=== PATIENT | female | born 1995 | race Caucasian/White ===

== ENCOUNTER 2016-12-08 00:20 | Inpatient (IN) ==
[2016-12-08] MEDS ORDERED: NS 1,000 ML IV ONE ×2 (00:39→02:36)
[2016-12-08 00:49] LABS: MANUAL DIFF NEEDED? NO
[2016-12-08 01:07] LABS: BASO% 0.2 % (0.0-0.8); EOS# 0.23 X1000 (0.0-0.7); EOS% 1.2 % (0.0-10.0); HEMOGLOBIN 12.3 g/dL (12.0-16.0); IMM GRAN# 0.17 X1000 (0.0-0.04); IMM GRAN% 0.9 % (0.0-0.5); LYMPH# 2.57 X1000 (1.2-3.4); MCH 31.2 PG (27-31); MCHC 33.2 g/dL (33-37); MCV 93.9 FL (81-99); MONO# 0.84 X1000 (0.11-0.59); MONO% 4.3 % (1.7-9.3); MPV 9.9 FL (7.4-10.4); NEUT% 80.4 % (42.2-75.2); PLT 280 X1000 (130-400); RBC 3.94 XMIL (4.2-5.4)
[2016-12-08 01:10] LABS: UR AMPHETAMINES QUAL PRESUMPTIVE POSITIVE (NONE DETECT); UR BARBITUATES QUAL NONE DETECTED (NONE DETECT); UR BENZODIAZEPIN QUAL PRESUMPTIVE POSITIVE (NONE DETECT); UR CANNABINOIDS QUAL PRESUMPTIVE POSITIVE (NONE DETECT); UR COCAINE QUAL NONE DETECTED (NONE DETECT); UR MDMA QUAL NONE DETECTED (NONE DETECT); UR METHADONE QUAL NONE DETECTED (NONE DETECT); UR METHAMPHETAMINE QUAL PRESUMPTIVE POSITIVE (NONE DETECT); UR OPIATES QUAL PRESUMPTIVE POSITIVE (NONE DETECT); UR OXYCODONE QUAL NONE DETECTED (NONE DETECT); UR PCP QUAL NONE DETECTED (NONE DETECT); UR TCA QUAL NONE DETECTED (NONE DETECT)
[2016-12-08 01:11] LABS: INR 1.04 (0.86-1.15); PROTIME 13.9 Seconds (12.1-15.5)
[2016-12-08 01:12] LABS: PTT PL 34.2 Seconds (22.6-43.9)
[2016-12-08 01:31] LABS: BILIRUBIN URINE NEGATIVE (NEGATIVE); BLOOD URINE TRACE (NEGATIVE); CLARITY CLEAR (CLEAR); COLOR YELLOW; LEUKOCYTES URINE TRACE (NEGATIVE); NITRITE URINE NEGATIVE (NEGATIVE); PH URINE 6.5; PROTEIN URINE 2+(100 mg/dL) mg/dL (NEGATIVE); SP GRAVITY URINE 1.025; UROBILINOGEN URINE 1+(1 mg/dL)
[2016-12-08 01:36] LABS: URINE CRYSTAL CA OXALATE PRESENT /HPF; URINE CULTURE PL NEEDED? YES; URINE EPITHELIAL CELLS <10 /HPF (<10); URINE RBC <10 /HPF (<10); URINE SOURCE CATH; URINE WBC <10 /HPF (<10)
[2016-12-08 02:08] LABS: AGAP 11; ALBUMIN 3.6 g/dL (3.5-5.0); ALKALINE PHOSPHATASE 99 U/L (32-104); BUN 9 mg/dL (8-22); CHLORIDE 101 mmol/L (98-107); CK PROFILE 167 U/L (24-173); COSMO 280; GOT 19 U/L (10-30); GPT 18 U/L (10-36); MAGNESIUM 1.9 mg/dL (1.5-2.7); POTASSIUM 4.7 mmol/L (3.5-5.1); SODIUM 137 mmol/L (136-145); TCO2 25 mmol/L (25-35); TOTAL PROTEIN 6.9 g/dL (6.3-8.3)
[2016-12-08 02:16] LABS: FREE T4 1.38 ng/dL (0.93-1.70)
[2016-12-08] MEDS ORDERED: VANCOMYCIN 1 GM/NS 1 GM/250 ML IVPB IV ONE (03:40)
--- NOTE | 2016-12-08 05:59 | EKG Report ---
Test Performed on : 12/08/2016 00:22:50 AM Test Reason : CHEST PAIN Blood Pressure : / mmHG Vent. Rate : 114 BPM Atrial Rate : 114 BPM P-R Int : 164 ms QRS Dur : 090 ms QT Int : 342 ms P-R-T Axes : 057 075 017 degrees QTc Int : 471 ms Sinus tachycardia. Otherwise normal ECG No previous ECGs available Unconfirmed Result
--- NOTE | 2016-12-08 07:39 | Diag Imaging Result Document ---
PROCEDURE NAME: HEAD W/O CONTRAST - 12/08/2016 CT BRAIN WITHOUT CONTRAST. DOSE REDUCTION PROTOCOL. FINDINGS: No parenchymal hemorrhage. No epidural or subdural hematoma. No subarachnoid hemorrhage. No mass identified on this noncontrasted exam. No midline shift. No hydrocephalus. No sinus opacification. IMPRESSION: No hemorrhage. Negative brain CT without contrast. A preliminary report was given at 1:44 a.m..
--- NOTE | 2016-12-08 09:31 | Diag Imaging Result Document ---
PROCEDURE NAME: CHEST-PORTABLE - 12/08/2016 PORTABLE CHEST: COMPARISON: No comparison exam. FINDINGS: Heart size is normal. There is mild prominence of central vascular markings. The remainder of the lungs appear essentially clear. There is no consolidation, pleural effusion, or pneumothorax identified. There is no obvious rib fracture seen. IMPRESSION: Mild prominence of central vascular markings. No other evidence of acute disease.
[2016-12-08] MEDS ORDERED: ZOFRAN IV PRN (17:51)
[2016-12-08] MEDS ORDERED: NS 1,000 ML IV SCH (17:51)
[2016-12-08] MEDS ORDERED: ZOSYN 3.375 GM/NS 3.375 GM/50 ML IVPB IV SCH (18:00)
[2016-12-08] MEDS ORDERED: VANCOMYCIN IV PER PHARMACY MISC SCH (18:00)
--- NOTE | 2016-12-08 18:14 | HISTORY AND PHYSICAL ---
CHIEF COMPLAINT: Unresponsive. HISTORY OF PRESENT ILLNESS: This is a 21-year-old female who presented to the emergency room via EMS after taking an apparent overdose. On EMS arrival, a friend was doing CPR. She was given 2 mg of nasal Narcan with no response followed by 2 mg via EJ. The patient did respond and she pulled out the EJ, and was then placed on O2 non-rebreather at 2 L. Shortly after arriving at the emergency room, she was placed on 2 L nasal cannula where she remains and saturations have stayed 96-99%. The patient does have a prior history of narcotic use and abuse with a prior suicide attempt with a prior overdose of heroin. In the emergency room, she was given IV hydration as well as vancomycin and admitted to ICU for further evaluation and treatment. PAST MEDICAL HISTORY: Heroin overdose, prior suicide attempt. Polysubstance use and abuse. PAST SURGERY HISTORY: Unknown. SOCIAL HISTORY: Positive for illicit drug use. Tobacco, alcohol use. ALLERGIES: No known drug allergies. HOME MEDICATIONS: Will be verified. REVIEW OF SYSTEMS: A 14-point review of systems is discussed with patient. She denied any chest pain prior to this episode, palpitations, syncope, dizziness, cough, fever, chills, black or bloody vomitus, black or bloody stools, hematuria, dysuria, frequency, urgency. PHYSICAL EXAMINATION: GENERAL: This is a 21-year-old female, sitting in the bed, in no distress. VITAL SIGNS: Blood pressure is 115/70, heart rate is 78, respirations 20, temperature is 97.9 with oxygen saturations of 98% on 2 L nasal cannula. HEENT: Head is normocephalic, atraumatic. Pupils equal, round, react to light. EOMs are intact. Sclerae anicteric. Mucous membranes are moist. NECK: Supple. Trachea midline. CARDIOVASCULAR: Regular rate and rhythm. S1, S2 appreciated. PULMONARY: Breath sounds are clear with no increased work of breathing noted. GASTROINTESTINAL: Soft, nontender, nondistended with bowel sounds in all 4 quadrants. : Chand is patent with urine clear yellow. SKIN: Warm and dry. DIAGNOSTICS: WBC is 19.7, with a hemoglobin of 12.3, hematocrit 37 and platelets of 280. Sodium is 137, potassium 4.7, BUN 9, creatinine 0.9, with a glucose of 226. Urine drug screen is positive for opiates, amphetamines, methamphetamines, benzodiazepines and cannabinoids with no blood alcohol. Chest x-ray revealed no acute processes. CT of the head revealed no hemorrhage. No epidural or subdural hematoma. No mass identified. No midline shift. ASSESSMENT AND PLAN: 1. Polysubstance overdose. 2. Unresponsive receiving CPR from a bystander on EMS arrival. Drug screen as stated above. At present, she is awake and alert. She does complain of a sore chest as she did receive CPR. We will continue with oxygen supplementation at present. She will continue on telemetry. We will give IV hydration. We will continue with antibiotics as we are not sure if she aspirated. We will start to advance her diet. Further treatments pending hospital course. Dictated by RADHA Willard for Henrry Peacock MD cc: RADHA Willard MD MTDD
[2016-12-08 19:48] VITALS: BP 121/68
[2016-12-08] MEDS ORDERED: VANCOMYCIN 1,800 MG in NS 500 ML IV SCH (20:00)
[2016-12-09] MEDS ORDERED: PRILOSEC PO SCH (07:00)
--- NOTE | 2016-12-15 19:59 | PROVIDER DOCUMENTATION ---
This chart was entered by Ankita Solomon Scribe, acting as scribe for Joni Roque DO. [id number] Abuse/Overdose - General Chief Complaint: Overdose Stated Complaint: overdose Time Seen by Provider: 12/08/16 00:23 Source: patient Allergies/Adverse Reactions: Allergies Allergy/AdvReac Type Severity Reaction Status Date / Time No Known Allergies Allergy Verified 12/08/16 00:29 Home Medications: Home Medication List Medication Instructions Recorded Confirmed Last Taken Type Bupropion [Wellbutrin] 150 mg PO ORDERED 12/08/16 12/08/16 Unknown History NK [No Home Medications] 12/08/16 12/08/16 Unknown History - History of Present Illness-Drug/Alcohol Nature of Presenting Problem: 21 Y/O F presents to ED with Overdose. Pt was found by a friend, and CPR was started on by bystander. EMS gave 4 Narcan in field. Pt pulled out one of her lines. Pt was talking on arrival and answering and asking questions. Pt just left rehab a few days a ago after being there for a month. Pt was found with an IV in her arm and her arm tied up, Possible heroine. IV noted to still be in left arm on arrival to ED. This episode of drinking or use began:: this evening Severity: reports: moderate, severe Associated Symptoms: reports: fever/chills (no fever) Any injuries associated with this episode of intoxication?: No Similar Symptoms Previously?: Yes - Substance Abuse Substance Use: reports: opiates - Detox/Hospitalizations Previous detox/rehab admissions?: Yes Date of last Detox?: 12/05/16 What was the diagnosis?: drug abuse - Overdose List substance(s) ingested.: possibly heroine Review of Systems - Adult - REVIEW OF SYSTEMS - ADULT Constitutional: reports: chills. denies: fever Eyes: reports: no symptoms reported Ears, Nose, Mouth & Throat: reports: no symptoms reported Cardiovascular: reports: no symptoms reported Respiratory: reports: no symptoms reported Gastrointestinal: reports: no symptoms reported Genitourinary: reports: no symptoms reported Musculoskeletal: reports: no symptoms reported Integumentary: reports: no symptoms reported Neurological: reports: no symptoms reported Psychiatric: reports: alcohol/drug dependence Endocrine: reports: no symptoms reported Hematologic/Lymphatic: reports: no symptoms reported Allergic/Immunologic: reports: no symptoms reported All Other Systems: Reviewed and Negative Past History - Adult - PAST MEDICAL HISTORY-ADULT Review of Records: reports: Old Records Reviewed, Nursing Assessment Review, Medications Reviewed, Social history reviewed & non-contributory. - SOCIAL HISTORY Substance Use: opiates Physical Exam-General - PHYSICAL EXAM-ADULT Initial Vital Signs Reviewed: Yes - CONSTITUTIONAL General Appearance: alert, obese - EYES Eyes: PERRL/EOMI, pink conjunctivae - HEAD, EARS, NOSE, MOUTH & THROAT HENMT: normocephalic/atraumatic, moist mucous membranes, normal ENT inspection, TMs normal, pharynx normal - NECK Neck: non-tender, full range of motion, supple, normal inspection - RESPIRATORY Respiratory: chest non-tender, lungs clear, normal breath sounds - CARDIOVASCULAR Cardiovascular: tachycardia - GASTROINTESTINAL (ABDOMEN) Abdominal Exam: normal bowel sounds, non tender, soft - LYMPHATIC Lymphatic: no adenopathy - MUSCULOSKELETAL Back Exam: normal inspection, no CVA tenderness, no vertebral tenderness Extremity: normal range of motion, non-tender, normal gait - SKIN Integumentary: normal color, normal turgor, warm/dry - NEUROLOGIC Neurologic: church business [employer] II-XII nml as tested, grossly normal - PSYCHIATRIC Psych/Mental Status: normal mood/affect, normal thought content, normal thought process, oriented x 3 Progress - PLAN OF CARE/RESULTS Progress/Plan/Lab Results: Orders Category Date Time Status Admit - [facility] Routine AdmDCTranf 12/08/16 02:36 Ordered Call Admitting on Arrival AT ADMISSION Care 12/08/16 02:37 Completed Cardiac Monitoring DIRECTED Care 12/08/16 00:29 Completed Chand Cath Insertion ORDERED Care 12/08/16 00:34 Completed Saline Loc DIRECTED Care 12/08/16 02:36 Completed Saline Loc NOW Care 12/08/16 00:29 Completed Vital Signs Order ARRIVAL TO ROOM Care 12/08/16 02:36 Completed CHEST-PORTABLE [RAD] Stat Exams 12/08/16 01:31 Completed HEAD W/O CONTRAST [CT] Stat Exams 12/08/16 00:30 Completed ALCOHOL BLOOD Stat Lab 12/08/16 00:40 Completed CBC WITH ELECTRONIC DIFF [HEME] Stat Lab 12/08/16 00:40 Completed CK PROFILE [SP CHEM] Stat Lab 12/08/16 00:40 Completed COMPREHENSIVE METABOLIC PANEL [CHEM] Stat Lab 12/08/16 00:40 Completed D-D[address]ER [address] [COAG] Stat Lab 12/08/16 00:40 Completed FREE T4 Stat Lab 12/08/16 00:40 Completed MAGNESIUM [CHEM] Stat Lab 12/08/16 00:40 Completed PRO B-NATRIURETIC PEPTIDE Stat Lab 12/08/16 00:40 Completed PROTIME WITH INR PL [COAG] Stat Lab 12/08/16 00:[address] [COAG] Stat Lab 12/08/16 00:40 Completed TROPONIN T Stat Lab 12/08/16 00:40 Completed TSH Stat Lab 12/08/16 00:[address] W/POSS RFLX CULT [URINALYSIS] Stat Lab 12/08/16 00:40 Completed URINE CULTURE [RM] Routine Lab 12/08/16 01:36 Completed URINE DRUG SCREEN PL Stat Lab 12/08/16 00:40 Completed VITAMIN B12 Stat Lab 12/08/16 00:40 Completed 0.9% Sodium Chloride Inj [Ns] 1,000 ml Med 12/08/16 02:36 Discontinued IV 150 mls/hr 0.9% Sodium Chloride Inj [Ns] 1,000 ml Med 12/08/16 00:39 Discontinued IV 999 mls/hr Oxygen Device Routine Oth 12/08/16 02:37 Active EKG [EKG] Stat Ther 12/08/16 00:29 Draft Transfer/Admit Order [TRANSFER] Routine Transfer 12/08/16 02:38 Completed Result Diagrams: 12/08/16 00:40 12/08/16 00:40 - EKG 1 Time of EKG reading by physician:: 00:22 EKG Read and Signed by:: Joni Roque EKG Interpretation (*Must complete 3 of following elements*): Normal Rate: 114 Rhythm: Sinus Tachycardia Comments: Otherwise Normal ECG - CT/MRI 1 CT Study: Head Impression: Normal CT Results: NAD - CONSULTS/PCP/HOSPITALIST Notification #1 *Consult/PCP/Hospitalist*: Time Discussed: 02:37 Reason/Comments: Admit Consult Disposition: Admit (Admit Accepted) Departure - Departure Time of Disposition Decision: 02:36 DIAGNOSIS: Overdose Disposition: ADMITTED INPATIENT 09 Certified Medical Emergency: Emergent Condition: Stable - Critical Care Note This patient required my direct & personal management of CC.: No This chart was documented by the indicated scribe, (Ankita Solomon Scribe) and accurately reflects the services I performed and decisions made by me, Joni Roque DO, as attested by the provider's signature.
== END 2016-12-08 22:23 | disposition left against medical advice (07) ==
LOC: P.ED 00:20 → P.ICU 02:54
PROVIDERS: ATTEND Family Medicine